=== PATIENT | female | born 1930 | race Two or more races ===

== ENCOUNTER → 2017-10-21 | Outpatient (CLI) | payer OTHER | END | disposition home or self-care (01) | LOC: RAD 11:04 | DX: M54.2 Cervicalgia (principal); M47.817 Spondylosis without myelopathy or radiculopathy, lumbosacral region ==

== ENCOUNTER 2018-03-08 19:08 | Outpatient (CLI) | payer OTHER | END 2018-03-08 19:33 | disposition home or self-care (01) | LOC: RAD 19:08 | DX: Z76.89 Persons encountering health services in other specified circumstances (principal) ==

== ENCOUNTER 2018-03-09 08:24 | Outpatient (CLI) | payer OTHER | END 2018-03-09 08:42 | disposition home or self-care (01) | LOC: LAB 08:24 | DX: D64.89 Other specified anemias (principal); D68.8 Other specified coagulation defects; N39.0 Urinary tract infection, site not specified; E88.89 Other specified metabolic disorders; A49.02 Methicillin resistant Staphylococcus aureus infection, unspecified site; E55.9 Vitamin D deficiency, unspecified; E21.3 Hyperparathyroidism, unspecified; E83.42 Hypomagnesemia ==

== ENCOUNTER 2018-03-09 11:38 | Outpatient (CLI) | payer OTHER | END 2018-03-09 12:19 | disposition home or self-care (01) | LOC: RAD 501 11:38 | DX: M25.511 Pain in right shoulder (principal) ==